=== PATIENT | female | born 1990 | race Two or more races ===

== ENCOUNTER 2017-08-12 12:36 | Emergency (ER) | payer MEDICAID, OTHER ==
[~2017-08-12] VITALS: Ht 160 cm; Wt 59.9 kg
[2017-08-12 12:36] VITALS: BP 149/95
== END 2017-08-12 13:36 | disposition home or self-care (01) ==
LOC: ER 12:37
DX: J45.909 Unspecified asthma, uncomplicated (principal); Z51.5 Encounter for palliative care; Z91.013 Allergy to seafood
CPT/HCPCS: 99283; A4606; Z7610